=== PATIENT | female | born 1995 ===

== ENCOUNTER 2019-12-09 10:02 | Inpatient (IN) | payer MEDICAID, OTHER ==
[2019-12-09] MEDS ORDERED: Tranexamic Acid 1,000 MG in Sodium Chloride 0.9% 100 ML IV PRN (11:50)
[2019-12-09] MEDS ORDERED: Misoprostol 200 MCG Tab PO PRN (11:50)
[2019-12-09] MEDS ORDERED: Water For Irrigation,Sterile 1,000 ML Container IRR PRN (11:50)
[2019-12-09] MEDS ORDERED: Carboprost Tromethamine 250 MCG/1 ML Amp IM PRN (11:50)
[2019-12-09] MEDS ORDERED: Terbutaline 1 MG/ML SDV SUBCUT PRN (11:50)
[2019-12-09] MEDS ORDERED: Sodium Chloride 0.9% 2.5 ML Syringe FLUSH PRN (11:50)
[2019-12-09] MEDS ORDERED: Methylergonovine 0.2 MG/1 ML Amp IM PRN (11:50)
[2019-12-09] MEDS ORDERED: Sodium Chloride 0.9% 10 ML Syringe FLUSH PRN (11:50)
[2019-12-09] MEDS ORDERED: Lidocaine 1% 50 ML MDV INJECT PRN (11:50)
[2019-12-09] MEDS ORDERED: Sodium Chloride 0.9% 10 ML SDV IV PRN (11:50)
[2019-12-09] MEDS ORDERED: Ondansetron 4 MG/2 ML SDV IVPUSH PRN (11:50)
[2019-12-09] MEDS ORDERED: Oxytocin/0.9 % Sodium Chloride 30 UNIT/500 ML BAG IV SCH ×2 (12:00→22:30)
--- NOTE | 2019-12-09 12:11 | US ---
Biophysical profile: Multiple real-time images were obtained. presentation: Cephalic Heart rate: 142 BPM Amniotic fluid: CHELSEA 8.11 cm Biophysical profile: breathing 2, movement 2, tone 2, amniotic fluid volume 2 Impression: 1. Single intrauterine fetus currently cephalic in presentation. 2. 8 out of 8 on biophysical profile. Diagnostic code #1 This report was dictated in MDT
[2019-12-09] MEDS: Clindamycin Phosphate in D5W 900 MG in Premix Bag 1 BAG IV SCH ×4 (13:19→21:31)
[2019-12-09 13:20] LABS: BLOOD UREA NITROGEN,BUN 14 mg/dL (7.0-18.0); CHLORIDE,CL 103 mmol/L (98-107); GLUCOSE RANDOM 89 mg/dL (74-106); POTASSIUM,K 4.6 mmol/L (3.5-5.1); SODIUM,NA 136 mmol/L (136-145)
[2019-12-09] MEDS: Lactated Ringers 1,000 ML IV SCH ×2 (13:20→20:57)
[2019-12-09] MEDS: Misoprostol 25 MCG (1/4 of 100 MCG) Tab VAG PRN ×2 (13:22→18:31)
--- NOTE | 2019-12-09 15:37 | PCM.PREANE ---
Preanesthetic Assessment - Procedure Proposed Procedure: GRETCHEN - Anesthesia/Transfusion/Family Hx Anesthesia History: Prior Anesthesia Without Reaction Type of Anesthesia Reaction: Unknown (Reports Lidocaine very short acting.) Family History of Anesthesia Reaction: No Transfusion History: No Prior Transfusion(s) Intubation History: Unknown - Review of Systems General: No Symptoms Pulmonary: No Symptoms Cardiovascular: No Symptoms Gastrointestinal: No Symptoms Neurological: No Symptoms Other: Reports: Anxiety (Spinal Lordosis) - Physical Assessment Height: 1.55 m Weight: 109.316 kg ASA Class: 2 Mental Status: Alert & Oriented x3 Airway Class: Mallampati = 2 Dentition: Reports: Normal Dentition Thyro-Mental Finger Breadths: 3 Mouth Opening Finger Breadths: 3 ROM/Head Extension: Full Lungs: Clear to Auscultation Cardiovascular: Regular Rate - Lab Values: Laboratory Last Values WBC 11.85 K/uL (4.0-11.0) H 12/09/19 12:35 RBC 4.82 M/uL (4.30-5.90) 12/09/19 12:35 Hgb 14.3 g/dL (12.0-16.0) 12/09/19 12:35 Hct 41.8 % (36.0-46.0) 12/09/19 12:35 MCV 86.7 fL (80.0-98.0) 12/09/19 12:35 MCH 29.7 pg (27.0-32.0) 12/09/19 12:35 MCHC 34.2 g/dL (31.0-37.0) 12/09/19 12:35 RDW Std Deviation 42.5 fl (28.0-62.0) 12/09/19 12:35 RDW Coeff of José 14 % (11.0-15.0) 12/09/19 12:35 Plt Count 169 K/uL (150-400) 12/09/19 12:35 MPV 14.10 fL (7.40-12.00) H 12/09/19 12:35 Nucleated RBC % 0.0 /100WBC 12/09/19 12:35 Nucleated RBCs # 0 K/uL 12/09/19 12:35 Sodium 136 mmol/L (136-145) 12/09/19 12:35 Potassium 4.6 mmol/L (3.5-5.1) 12/09/19 12:35 Chloride 103 mmol/L (98-107) 12/09/19 12:35 Carbon Dioxide 19.0 mmol/L (21.0-32.0) L 12/09/19 12:35 BUN 14 mg/dL (7.0-18.0) 12/09/19 12:35 Creatinine 0.7 mg/dL (0.6-1.0) 12/09/19 12:35 Est Cr Clr Drug Dosing 94.32 mL/min 12/09/19 12:35 Estimated GFR (MDRD) > 60.0 ml/min 12/09/19 12:35 Glucose 89 mg/dL (74-106) 12/09/19 12:35 Calcium 9.5 mg/dL (8.5-10.1) 12/09/19 12:35 Total Bilirubin 0.5 mg/dL (0.2-1.0) 12/09/19 12:35 AST 17 IU/L (15-37) 12/09/19 12:35 ALT 24 IU/L (14-63) 12/09/19 12:35 Alkaline Phosphatase 272 U/L (46-116) H 12/09/19 12:35 Total Protein 7.0 g/dL (6.4-8.2) 12/09/19 12:35 Albumin 2.9 g/dL (3.4-5.0) L 12/09/19 12:35 Globulin 4.1 g/dL (2.6-4.0) H 12/09/19 12:35 Albumin/Globulin Ratio 0.7 (0.9-1.6) L 12/09/19 12:35 Urine Color YELLOW 12/09/19 10:54 Urine Appearance HAZY 12/09/19 10:54 Urine pH 6.0 (5.0-8.0) 12/09/19 10:54 Ur Specific [place] 1.025 (1.001-1.035) 12/09/19 10:54 Urine Protein NEGATIVE mg/dL (NEGATIVE) 12/09/19 10:54 Urine Glucose (UA) NEGATIVE mg/dL (NEGATIVE) 12/09/19 10:54 Urine Ketones NEGATIVE mg/dL (NEGATIVE) 12/09/19 10:54 Urine Occult Blood NEGATIVE (NEGATIVE) 12/09/19 10:54 Urine Nitrite POSITIVE (NEGATIVE) H 12/09/19 10:54 Urine Bilirubin NEGATIVE (NEGATIVE) 12/09/19 10:54 Urine Urobilinogen 0.2 EU/dL (<2.0) 12/09/19 10:54 Ur Leukocyte Esterase NEGATIVE (NEGATIVE) 12/09/19 10:54 Ur Random Creatinine 306.7 mg/dL 12/09/19 10:54 U Random Total Protein 41.3 mg/dL (<11.9) H 12/09/19 10:54 Protein/Creatinin Ratio 0.1 12/09/19 10:54 COVID-19 (GERALD) NEGATIVE (NEGATIVE) 12/09/19 12:44 Blood Type O POSITIVE 12/09/19 12:35 Antibody Screen NEGATIVE 12/09/19 12:35 - Allergies Allergies/Adverse Reactions: Allergies Allergy/AdvReac Type Severity Reaction Status Date / Time amoxicillin Allergy Hives Verified 11/16/19 16:47 aspirin Allergy Difficulty Verified 11/16/19 17:57 Breathing hydrocodone Allergy Hallucinati Verified 11/16/19 16:49 ons Penicillins Allergy Hives Verified 11/16/19 16:48 - Blood Blood Available: No Product(s) Available: None - Anesthesia Plan Pre-Op Medication Ordered: None - Acknowledgements Anesthesia Type Planned: Epidural Pt an Appropriate Candidate for the Planned Anesthesia: Yes Alternatives and Risks of Anesthesia Discussed w Pt/Guardian: Yes Pt/Guardian Understands and Agrees with Anesthesia Plan: Yes Additional Comments: Appropriate candidate. Discussed, ? answered, aware of issues with lordosis. Accepts. Wishes to proceed when time appropriate. PreAnesthesia Questionnaire - CURRENT (IN HOUSE) MEDS Current Meds: Current Medications Carboprost Tromethamine (Hemabate Ds) 250 mcg IM ASDIRECTED PRN PRN Reason: Post Hemorrhage Lactated Ringer's (Ringers, Lactated) 1,000 mls @ 150 mls/hr IV ASDIRECTED [facility] Last Admin: 12/09/19 13:20 Dose: 150 mls/hr Documented by: Oxytocin/Sodium Chloride (Oxytocin 30 Unit/500 Ml-Ns) 30 unit in 500 mls @ 999 mls/hr IV TITRATE [facility] Tranexamic Acid 1,000 mg/ (Sodium Chloride) 110 mls @ 660 mls/hr IV ONETIME PRN PRN Reason: Bleeding Clindamycin Phosphate 900 mg/ (Premix) 50 mls @ 100 mls/hr IV Q8H ES Last Admin: 12/09/19 13:19 Dose: 100 mls/hr Documented by: Lidocaine HCl (Xylocaine 1%) 50 ml INJECT ONETIME PRN PRN Reason: Laceration repair Methylergonovine Maleate (Methergine) 0.2 mg IM ASDIRECTED PRN PRN Reason: Post Hemorrhage Misoprostol (Cytotec) 200 mcg PO ONETIME PRN PRN Reason: Post Hemorrhage Misoprostol (Cytotec) 25 mcg VAG Q4H PRN PRN Reason: Cervical Ripening Last Admin: 12/09/19 13:22 Dose: 25 mcg Documented by: Ondansetron HCl (Zofran) 4 mg IVPUSH Q6H PRN PRN Reason: Nausea/Vomiting Sodium Chloride (Saline Flush) 10 ml FLUSH ASDIRECTED PRN PRN Reason: Keep Vein Open Sodium Chloride (Saline Flush) 2.5 ml FLUSH ASDIRECTED PRN PRN Reason: Keep Vein Open Sodium Chloride (Normal Saline) 10 ml IV ASDIRECTED PRN PRN Reason: IV Use Sterile Water (Sterile Water For Irrigation) 1,000 ml IRR ASDIRECTED PRN PRN Reason: delivery Terbutaline Sulfate (Brethine) 0.25 mg SUBCUT ASDIRECTED PRN PRN Reason: Tacysystole
[2019-12-09] MEDS ORDERED: Nalbuphine 10 MG/1 ML Vial IVPUSH PRN (18:13)
[2019-12-09] MEDS ORDERED: Butorphanol 1 MG/ML SDV IVPUSH PRN (18:13)
[2019-12-09] MEDS ORDERED: fentaNYL 100 MCG/2 ML SDV ONE (20:12)
[2019-12-09] MEDS ORDERED: Ropivacaine 0.2% PF 2 MG/ML 20 ML SDV ONE (20:13)
[2019-12-09] MEDS ORDERED: Ropivacaine HCl/PF 100 ML ONE (20:13)
[2019-12-09] MEDS ORDERED: Sodium Chloride 0.9% 20 ML ONE (20:48)
[2019-12-09] MEDS ORDERED: ePHEDrine 50 MG/ML SDV ONE (20:48)
[2019-12-09] MEDS: Nitrofurantoin Monohydrate/Macrocrystalline 100 MG Cap PO SCH (21:05)
--- NOTE | 2019-12-09 21:23 | PCM.SN.2 ---
- Free Text/Narrative Note: GRETCHEN on . BMI 44.5. Hx Lordosis. Discussed, ? answered, permit signed, wishes to proceed. Bolus in-progress. Hx of Lidocaine tolerance. Pain 8/10. Prep: Chloroprep. Skin local: 5ml 1% Lidocaine @ L3-4(?). Space on second pass. Catheter without issues to 6 cm. TEST NEGATIVE. Occlusive drsg. Bolus slowly, 8ml 0.2% Naropin + 100 mcg Fentanyl. BP drop post, Ephidrine 10mg x1. Immediate response 124/ Tolerated procedure well. Pain 0/10 post. VSS.
[2019-12-10] MEDS: Nitrofurantoin Monohydrate/Macrocrystalline 100 MG Cap PO SCH ×2 (03:35→09:13)
[2019-12-10] MEDS: Lactated Ringers 1,000 ML IV SCH (03:36)
[2019-12-10] MEDS: Clindamycin Phosphate in D5W 900 MG in Premix Bag 1 BAG IV SCH ×4 (04:02→12:10)
[2019-12-10] MEDS ORDERED: fentaNYL 100 MCG/2 ML SDV ONE ×2 (06:37→08:37)
[2019-12-10] MEDS ORDERED: Ropivacaine 0.2% PF 2 MG/ML 20 ML SDV ONE (06:37)
[2019-12-10] MEDS ORDERED: Ropivacaine HCl/PF 100 ML ONE (06:43)
--- NOTE | 2019-12-10 06:57 | PCM.SN.2 ---
- Free Text/Narrative Note: Progressing well. Complaining of increased cervical/perineum pain. Naropin 0.2% 4ml + 100 mcg fentanyl given. Pain lessening. New epidural bag placed. Setting changed to bolus q15.
[2019-12-10] MEDS ORDERED: Bupivacaine 0.5% 30 ML SDV ONE (08:37)
--- NOTE | 2019-12-10 08:55 | PCM.SN.2 ---
- Free Text/Narrative Note: Complains of increasing discomfort ?02/27. VSS Progressing well, 9+ cm dilated. Marcaine 0.5% 4ml + 100 mcg Fentanyl given slowly via epidural. Negative aspiration . Pain lessening. No problems noted.
--- NOTE | 2019-12-10 12:57 | PCM.DEL ---
L & D Note - General Info Date of Service: 12/10/19 - Delivery Note Labor: Spontaneous, Augmented by Oxytocin Delivery Outcome: Livebirth Delivery Method: Spontaneous Vaginal Delivery-Single Delivery Mode: Spontaneous Presentation: Right Occiput Anterior (ALBAN) Nuchal Cord: Present, Reduced Anesthesia Type: Epidural Amniotic Fluid Description: Clear Laceration: None Placenta: Intact, Spontaneous Cord: 3 Vessels Estimated Blood Loss: 200 : Suctioned, Bulb Syringe, Stimulated, Warmed, [place] Used, Warmer Used Score 1 min: 7 Score 5 min: 9 Delivery Comments (Free Text/Narrative):: Liveborn male born at 1234 weighing 3300g apgars 7 and 9 - General Info Date of Service: 12/10/19 - Patient Data Weight - Most Recent: 241 lb I&O - Last 24 Hours: Intake & Output 12/09/19 12/10/19 12/10/19 22:59 06:59 14:59 Intake Total 1050 1050 Output Total 1300 Balance 1050 -250 Lab Results Last 24 Hours: Laboratory Results - last 24 hr 12/09/19 12/09/19 12/09/19 Range/Units 12:35 12:35 12:35 WBC 11.85 H (4.0-11.0) K/uL RBC 4.82 (4.30-5.90) M/uL Hgb 14.3 (12.0-16.0) g/dL Hct 41.8 (36.0-46.0) % MCV 86.7 (80.0-98.0) fL MCH 29.7 (27.0-32.0) pg MCHC 34.2 (31.0-37.0) g/dL RDW Std Deviation 42.5 (28.0-62.0) fl RDW Coeff of José 14 (11.0-15.0) % Plt Count 169 (150-400) K/uL MPV 14.10 H (7.40-12.00) fL Nucleated RBC % 0.0 /100WBC Nucleated RBCs # 0 K/uL Sodium (136-145) mmol/L Potassium (3.5-5.1) mmol/L Chloride (98-107) mmol/L Carbon Dioxide (21.0-32.0) mmol/L BUN (7.0-18.0) mg/dL Creatinine (0.6-1.0) mg/dL Est Cr Clr Drug Dosing mL/min Estimated GFR (MDRD) ml/min Glucose (74-106) mg/dL Calcium (8.5-10.1) mg/dL Total Bilirubin (0.2-1.0) mg/dL AST (15-37) IU/L ALT (14-63) IU/L Alkaline Phosphatase (46-116) U/L Total Protein (6.4-8.2) g/dL Albumin (3.4-5.0) g/dL Globulin (2.6-4.0) g/dL Albumin/Globulin Ratio (0.9-1.6) Urine Color Urine Appearance Urine pH (5.0-8.0) Ur Specific [place] (1.001-1.035) Urine Protein (NEGATIVE) mg/dL Urine Glucose (UA) (NEGATIVE) mg/dL Urine Ketones (NEGATIVE) mg/dL Urine Occult Blood (NEGATIVE) Urine Nitrite (NEGATIVE) Urine Bilirubin (NEGATIVE) Urine Urobilinogen (<2.0) EU/dL Ur Leukocyte Esterase (NEGATIVE) Urine RBC (0-2/HPF) Urine WBC (0-5/HPF) Ur Epithelial Cells (NONE-FEW) Urine Bacteria (NEGATIVE) Urine Mucus (NONE-MOD) RPR Non-Reac (Non-Reac) COVID-19 (GERALD) (NEGATIVE) Blood Type O POSITIVE Antibody Screen NEGATIVE 12/09/19 12/09/19 12/10/19 Range/Units 12:35 12:44 06:56 WBC (4.0-11.0) K/uL RBC (4.30-5.90) M/uL Hgb (12.0-16.0) g/dL Hct (36.0-46.0) % MCV (80.0-98.0) fL MCH (27.0-32.0) pg MCHC (31.0-37.0) g/dL RDW Std Deviation (28.0-62.0) fl RDW Coeff of José (11.0-15.0) % Plt Count (150-400) K/uL MPV (7.40-12.00) fL Nucleated RBC % /100WBC Nucleated RBCs # K/uL Sodium 136 (136-145) mmol/L Potassium 4.6 (3.5-5.1) mmol/L Chloride 103 (98-107) mmol/L Carbon Dioxide 19.0 L (21.0-32.0) mmol/L BUN 14 (7.0-18.0) mg/dL Creatinine 0.7 (0.6-1.0) mg/dL Est Cr Clr Drug Dosing 94.32 mL/min Estimated GFR (MDRD) > 60.0 ml/min Glucose 89 (74-106) mg/dL Calcium 9.5 (8.5-10.1) mg/dL Total Bilirubin 0.5 (0.2-1.0) mg/dL AST 17 (15-37) IU/L ALT 24 (14-63) IU/L Alkaline Phosphatase 272 H (46-116) U/L Total Protein 7.0 (6.4-8.2) g/dL Albumin 2.9 L (3.4-5.0) g/dL Globulin 4.1 H (2.6-4.0) g/dL Albumin/Globulin Ratio 0.7 L (0.9-1.6) Urine Color YELLOW Urine Appearance SLT CLOUDY Urine pH 6.0 (5.0-8.0) Ur Specific [place] >= 1.030 (1.001-1.035) Urine Protein TRACE H (NEGATIVE) mg/dL Urine Glucose (UA) NEGATIVE (NEGATIVE) mg/dL Urine Ketones NEGATIVE (NEGATIVE) mg/dL Urine Occult Blood MODERATE H (NEGATIVE) Urine Nitrite NEGATIVE (NEGATIVE) Urine Bilirubin NEGATIVE (NEGATIVE) Urine Urobilinogen 0.2 (<2.0) EU/dL Ur Leukocyte Esterase TRACE H (NEGATIVE) Urine RBC 8-12 (0-2/HPF) Urine WBC 5-10 (0-5/HPF) Ur Epithelial Cells FEW (NONE-FEW) Urine Bacteria FEW (NEGATIVE) Urine Mucus LIGHT (NONE-MOD) RPR (Non-Reac) COVID-19 (GERALD) NEGATIVE (NEGATIVE) Blood Type Antibody Screen Med Orders - Current: Current Medications Butorphanol Tartrate (Stadol) 1 mg IVPUSH Q1H PRN PRN Reason: Pain Last Admin: 12/09/19 18:21 Dose: 1 mg Documented by: Carboprost Tromethamine (Hemabate Ds) 250 mcg IM ASDIRECTED PRN PRN Reason: Post Hemorrhage Lactated Ringer's (Ringers, Lactated) 1,000 mls @ 150 mls/hr IV ASDIRECTED [facility] Last Infusion: 12/10/19 06:47 Dose: Infused Documented by: Oxytocin/Sodium Chloride (Oxytocin 30 Unit/500 Ml-Ns) 30 unit in 500 mls @ 999 mls/hr IV TITRATE [facility] Tranexamic Acid 1,000 mg/ (Sodium Chloride) 110 mls @ 660 mls/hr IV ONETIME PRN PRN Reason: Bleeding Clindamycin Phosphate 900 mg/ (Premix) 50 mls @ 100 mls/hr IV Q8H [facility] Last Admin: 12/10/19 12:10 Dose: 100 mls/hr Documented by: Oxytocin/Sodium Chloride (Oxytocin 30 Unit/500 Ml-Ns) 30 unit in 500 mls @ 2 mls/hr IV TITRATE [facility]; Protocol Last Infusion: 12/10/19 12:05 Dose: 6 munits/min, 6 mls/hr Documented by: Lidocaine HCl (Xylocaine 1%) 50 ml INJECT ONETIME PRN PRN Reason: Laceration repair Methylergonovine Maleate (Methergine) 0.2 mg IM ASDIRECTED PRN PRN Reason: Post Hemorrhage Misoprostol (Cytotec) 200 mcg PO ONETIME PRN PRN Reason: Post Hemorrhage Misoprostol (Cytotec) 25 mcg VAG Q4H PRN PRN Reason: Cervical Ripening Last Admin: 12/09/19 18:31 Dose: 25 mcg Documented by: Nalbuphine HCl (Nubain) 10 mg IVPUSH Q1H PRN PRN Reason: Pain (severe 7-10) Last Admin: 12/09/19 19:35 Dose: 10 mg Documented by: Nitrofurantoin Macrocrystals (Macrobid) 100 mg PO BID [facility] Last Admin: 12/10/19 09:13 Dose: Not Given Documented by: Ondansetron HCl (Zofran) 4 mg IVPUSH Q6H PRN PRN Reason: Nausea/Vomiting Last Admin: 12/10/19 04:09 Dose: 4 mg Documented by: Sodium Chloride (Saline Flush) 10 ml FLUSH ASDIRECTED PRN PRN Reason: Keep Vein Open Sodium Chloride (Saline Flush) 2.5 ml FLUSH ASDIRECTED PRN PRN Reason: Keep Vein Open Sodium Chloride (Normal Saline) 10 ml IV ASDIRECTED PRN PRN Reason: IV Use Sterile Water (Sterile Water For Irrigation) 1,000 ml IRR ASDIRECTED PRN PRN Reason: delivery Terbutaline Sulfate (Brethine) 0.25 mg SUBCUT ASDIRECTED PRN PRN Reason: Tacysystole Last Admin: 12/09/19 23:37 Dose: 0.25 mg Documented by: Discontinued Medications Bupivacaine HCl (Marcaine 0.5%) Confirm Administered Dose 30 ml .ROUTE .STK-MED ONE Stop: 12/10/19 08:38 Last Admin: 12/10/19 09:12 Dose: Not Given Documented by: Ephedrine Sulfate (Ephedrine Sulfate) Confirm Administered Dose 100 mg .ROUTE .ST-MED ONE Stop: 12/09/19 20:49 Fentanyl (Sublimaze) Confirm Administered Dose 100 mcg .ROUTE .ST-MED ONE Stop: 12/09/19 20:13 Last Admin: 12/10/19 09:12 Dose: Not Given Documented by: Fentanyl (Sublimaze) Confirm Administered Dose 100 mcg .ROUTE .Front [employer]k [facility]-MED ONE Stop: 12/10/19 06:38 Last Admin: 12/10/19 09:11 Dose: Not Given Documented by: Fentanyl (Sublimaze) Confirm Administered Dose 100 mcg .ROUTE .Front Desk [facility]-MED ONE Stop: 12/10/19 08:38 Last Admin: 12/10/19 09:09 Dose: Not Given Documented by: Ropivacaine (Naropin 0.2%) Confirm Administered Dose 100 mls @ as directed .ROUTE .[facility]-MED ONE Stop: 12/09/19 20:14 Last Admin: 12/10/19 09:11 Dose: Not Given Documented by: Sodium Chloride (Normal Saline) Confirm Administered Dose 20 mls @ as directed .ROUTE .ST-MED ONE Stop: 12/09/19 20:49 Ropivacaine (Naropin 0.2%) Confirm Administered Dose 100 mls @ as directed .ROUTE .[facility]-MED ONE Stop: 12/10/19 06:44 Last Admin: 12/10/19 09:10 Dose: Not Given Documented by: Ropivacaine (Naropin 0.2%) Confirm Administered Dose 20 ml .ROUTE .[facility]-MED ONE Stop: 12/09/19 20:14 Last Admin: 12/10/19 09:11 Dose: Not Given Documented by: Ropivacaine (Naropin 0.2%) Confirm Administered Dose 20 ml .ROUTE .STK-MED ONE Stop: 12/10/19 06:38 Last Admin: 12/10/19 09:11 Dose: Not Given Documented by: - Problem List & Annotations (1) Vaginal delivery SNOMED Code(s): 336233317 Code(s): O80 - ENCOUNTER FOR FULL-TERM UNCOMPLICATED DELIVERY Status: Acute Current Visit: Yes - Problem List Review Problem List Initiated/Reviewed/Updated: Yes - Assessment Assessment:: 24yo s/p . GBS positive sufficiently treated during labor. - Plan Plan:: Admit to for routine care Monitor lochia Encourage
[2019-12-10] MEDS ORDERED: Benzocaine/Menthol 20%-0.5% Spray 78 GM Cannister TOP PRN (12:59)
[2019-12-10] MEDS ORDERED: Witch Hazel Medicated Pads 40/Jar TOP PRN (12:59)
[2019-12-10] MEDS ORDERED: Docusate Sodium 100 MG Cap PO PRN (12:59)
[2019-12-10] MEDS ORDERED: Lanolin 100% Cream 7 GM Tube TOP PRN (12:59)
[2019-12-10] MEDS ORDERED: Acetaminophen 500 MG Tab PO PRN (12:59)
[2019-12-10] MEDS ORDERED: Bisacodyl 10 MG Supp RECTAL PRN (12:59)
[2019-12-10] MEDS: Acetaminophen 500 MG Tab PO PRN ×2 (15:43→20:24)
--- NOTE | 2019-12-11 07:03 | PCM.PNPP ---
<Juan Wood - Last Filed: 12/11/19 07:00> - General Info Date of Service: 12/11/19 Subjective Update: Pt doing well. No problems overnight. Having cramping pain well-controlled with tylenol. Bleeding is moderate. Has ambulated well and is tolerating oral intake. has been unsuccessful so far, so is supplementing with formula for now. - Review of Systems General: Reports: No Symptoms HEENT: Reports: No Symptoms Pulmonary: Reports: No Symptoms Cardiovascular: Reports: No Symptoms Gastrointestinal: Reports: No Symptoms Genitourinary: Reports: No Symptoms Musculoskeletal: Reports: Back Pain Skin: Reports: No Symptoms Neurological: Reports: No Symptoms Psychiatric: Reports: No Symptoms - General Info Date of Service: 12/11/19 - Patient Data Vital Signs - Most Recent: Last Vital Signs Temp 97.8 F 12/11/19 05:00 Pulse 84 12/11/19 05:00 Resp 17 12/11/19 05:00 BP 133/79 12/11/19 05:00 Pulse Ox 97 12/11/19 05:00 Weight - Most Recent: 109.316 kg Lab Results - Last 24 Hours: Laboratory Results - last 24 hr 12/09/19 12/10/19 12/10/19 Range/Units 12:35 06:56 12:34 Hgb (12.0-16.0) g/dL Hct (36.0-46.0) % Cord ABG pH 7.172 L (7.18-7.38) Cord ABG Base Excess -8 (-10--2) Cord VBG pH 7.284 (7.25-7.45) Cord VBG Base Excess -8 (-10--2) Urine Color YELLOW Urine Appearance SLT CLOUDY Urine pH 6.0 (5.0-8.0) Ur Specific [place] >= 1.030 (1.001-1.035) Urine Protein TRACE H (NEGATIVE) mg/dL Urine Glucose (UA) NEGATIVE (NEGATIVE) mg/dL Urine Ketones NEGATIVE (NEGATIVE) mg/dL Urine Occult Blood MODERATE H (NEGATIVE) Urine Nitrite NEGATIVE (NEGATIVE) Urine Bilirubin NEGATIVE (NEGATIVE) Urine Urobilinogen 0.2 (<2.0) EU/dL Ur Leukocyte Esterase TRACE H (NEGATIVE) Urine RBC 8-12 (0-2/HPF) Urine WBC 5-10 (0-5/HPF) Ur Epithelial Cells FEW (NONE-FEW) Urine Bacteria FEW (NEGATIVE) Urine Mucus LIGHT (NONE-MOD) RPR Non-Reac (Non-Reac) 12/11/19 Range/Units 05:45 Hgb 11.7 L (12.0-16.0) g/dL Hct 35.8 L (36.0-46.0) % Cord ABG pH (7.18-7.38) Cord ABG Base Excess (-10--2) Cord VBG pH (7.25-7.45) Cord VBG Base Excess (-10--2) Urine Color Urine Appearance Urine pH (5.0-8.0) Ur Specific [place] (1.001-1.035) Urine Protein (NEGATIVE) mg/dL Urine Glucose (UA) (NEGATIVE) mg/dL Urine Ketones (NEGATIVE) mg/dL Urine Occult Blood (NEGATIVE) Urine Nitrite (NEGATIVE) Urine Bilirubin (NEGATIVE) Urine Urobilinogen (<2.0) EU/dL Ur Leukocyte Esterase (NEGATIVE) Urine RBC (0-2/HPF) Urine WBC (0-5/HPF) Ur Epithelial Cells (NONE-FEW) Urine Bacteria (NEGATIVE) Urine Mucus (NONE-MOD) RPR (Non-Reac) Med Orders - Current: Current Medications Acetaminophen (Tylenol Extra Strength) 500 mg PO Q4H PRN PRN Reason: Pain Acetaminophen (Tylenol Extra Strength) 1,000 mg PO Q4H PRN PRN Reason: Pain Last Admin: 12/10/19 20:24 Dose: 1,000 mg Documented by: Benzocaine/Menthol (Dermoplast Pain Relief 20%-0.5% [place]) 78 gm TOP ASDIRECTED PRN PRN Reason: Perineal Comfort Measure Bisacodyl (Dulcolax) 10 mg RECTAL ONETIME PRN PRN Reason: Constipation Docusate Sodium (Colace) 100 mg PO BID PRN PRN Reason: Constipation Emollient Ointment (Lansinoh Hpa) 0 gm TOP ASDIRECTED PRN PRN Reason: Sore Nipples Witch Della (Tucks) 1 pad TOP ASDIRECTED PRN PRN Reason: comfort care Discontinued Medications Bupivacaine HCl (Marcaine 0.5%) Confirm Administered Dose 30 ml .ROUTE .STK-MED ONE Stop: 12/10/19 08:38 Last Admin: 12/10/19 09:12 Dose: Not Given Documented by: Butorphanol Tartrate (Stadol) 1 mg IVPUSH Q1H PRN PRN Reason: Pain Last Admin: 12/09/19 18:21 Dose: 1 mg Documented by: Carboprost Tromethamine (Hemabate Ds) 250 mcg IM ASDIRECTED PRN PRN Reason: Post Hemorrhage Ephedrine Sulfate (Ephedrine Sulfate) Confirm Administered Dose 100 mg .ROUTE .STK-MED ONE Stop: 12/09/19 20:49 Fentanyl (Sublimaze) Confirm Administered Dose 100 mcg .ROUTE .STK-MED ONE Stop: 12/09/19 20:13 Last Admin: 12/10/19 09:12 Dose: Not Given Documented by: Fentanyl (Sublimaze) Confirm Administered Dose 100 mcg .ROUTE .STK-MED ONE Stop: 12/10/19 06:38 Last Admin: 12/10/19 09:11 Dose: Not Given Documented by: Fentanyl (Sublimaze) Confirm Administered Dose 100 mcg .ROUTE .STK-MED ONE Stop: 12/10/19 08:38 Last Admin: 12/10/19 09:09 Dose: Not Given Documented by: Lactated Ringer's (Ringers, Lactated) 1,000 mls @ 150 mls/hr IV ASDIRECTED [facility] Last Infusion: 12/10/19 06:47 Dose: Infused Documented by: Oxytocin/Sodium Chloride (Oxytocin 30 Unit/500 Ml-Ns) 30 unit in 500 mls @ 999 mls/hr IV TITRATE [facility] Last Infusion: 12/10/19 12:52 Dose: 500 mls/hr Documented by: Tranexamic Acid 1,000 mg/ (Sodium Chloride) 110 mls @ 660 mls/hr IV ONETIME PRN PRN Reason: Bleeding Clindamycin Phosphate 900 mg/ (Premix) 50 mls @ 100 mls/hr IV Q8H [facility] Last Admin: 12/10/19 12:10 Dose: 100 mls/hr Documented by: Ropivacaine (Naropin 0.2%) Confirm Administered Dose 100 mls @ as directed .ROUTE .STK-MED ONE Stop: 12/09/19 20:14 Last Admin: 12/10/19 09:11 Dose: Not Given Documented by: Sodium Chloride (Normal Saline) Confirm Administered Dose 20 mls @ as directed .ROUTE .STK-MED ONE Stop: 12/09/19 20:49 Oxytocin/Sodium Chloride (Oxytocin 30 Unit/500 Ml-Ns) 30 unit in 500 mls @ 2 mls/hr IV TITRATE ES; Protocol Last Infusion: 12/10/19 12:38 Dose: 0 munits/min, 0 mls/hr Documented by: Ropivacaine (Naropin 0.2%) Confirm Administered Dose 100 mls @ as directed .ROUT E .STK-MED ONE Stop: 12/10/19 06:44 Last Admin: 12/10/19 09:10 Dose: Not Given Documented by: Lidocaine HCl (Xylocaine 1%) 50 ml INJECT ONETIME PRN PRN Reason: Laceration repair Methylergonovine Maleate (Methergine) 0.2 mg IM ASDIRECTED PRN PRN Reason: Post Hemorrhage Misoprostol (Cytotec) 200 mcg PO ONETIME PRN PRN Reason: Post Hemorrhage Misoprostol (Cytotec) 25 mcg VAG Q4H PRN PRN Reason: Cervical Ripening Last Admin: 12/09/19 18:31 Dose: 25 mcg Documented by: Nalbuphine HCl (Nubain) 10 mg IVPUSH Q1H PRN PRN Reason: Pain (severe 7-10) Last Admin: 12/09/19 19:35 Dose: 10 mg Documented by: Nitrofurantoin Macrocrystals (Macrobid) 100 mg PO BID [facility] Last Admin: 12/10/19 09:13 Dose: Not Given Documented by: Ondansetron HCl (Zofran) 4 mg IVPUSH Q6H PRN PRN Reason: Nausea/Vomiting Last Admin: 12/10/19 04:09 Dose: 4 mg Documented by: Ropivacaine (Naropin 0.2%) Confirm Administered Dose 20 ml .ROUTE .STK-MED ONE Stop: 12/09/19 20:14 Last Admin: 12/10/19 09:11 Dose: Not Given Documented by: Ropivacaine (Naropin 0.2%) Confirm Administered Dose 20 ml .ROUTE .STK-MED ONE Stop: 12/10/19 06:38 Last Admin: 12/10/19 09:11 Dose: Not Given Documented by: Sodium Chloride (Saline Flush) 10 ml FLUSH ASDIRECTED PRN PRN Reason: Keep Vein Open Sodium Chloride (Saline Flush) 2.5 ml FLUSH ASDIRECTED PRN PRN Reason: Keep Vein Open Sodium Chloride (Normal Saline) 10 ml IV ASDIRECTED PRN PRN Reason: IV Use Sterile Water (Sterile Water For Irrigation) 1,000 ml IRR ASDIRECTED PRN PRN Reason: delivery Last Admin: 12/10/19 12:04 Dose: 1,000 ml Documented by: Terbutaline Sulfate (Brethine) 0.25 mg SUBCUT ASDIRECTED PRN PRN Reason: Tacysystole Last Admin: 12/09/19 23:37 Dose: 0.25 mg Documented by: - Infant Interaction Support Person: Significant Other - Recovery Exam Fundal Tone: Firm Fundal Level: At Umbilicus Fundal Placement: Midline Lochia Amount: Scant, Small Lochia Color: Rubra/Red Perineum Description: Intact, Minimal Bruising/Swelling Bladder Status: Voiding - Exam General: Alert, Oriented, No Acute Distress HEENT: Pupils Equal, EOMI Neck: Supple, No JVD Lungs: Clear to Auscultation, Normal Respiratory Effort. No: Crackles, Rales, Rhonchi, Rub, Wheezing Cardiovascular: Regular Rate, Regular Rhythm, No Murmurs GI/Abdominal Exam: Normal Bowel Sounds, Soft, Tender. No: Guarding, Rigid Extremities: Normal Inspection, Normal Range of Motion, Non-Tender Skin: Warm, Dry, Intact Neurological: No New Focal Deficit, Normal Speech, Normal Tone Psy/Mental Status: Alert, Normal Affect, Normal Mood - Problem List & Annotations (1) Vaginal delivery SNOMED Code(s): 310990883 Code(s): O80 - ENCOUNTER FOR FULL-TERM UNCOMPLICATED DELIVERY Status: Acute Current Visit: Yes - Problem List Review Problem List Initiated/Reviewed/Updated: Yes - Assessment Assessment:: 24yo s/p . GBS positive sufficiently treated during labor. PPD#1 - Plan Plan:: routine care Monitor lochia Encourage Baby on antibiotics until tomorrow, so will discharge then. <Keily Shrestha - Last Filed: 12/11/19 08:35> - General Info Functional Status: Reports: Pain Controlled, Tolerating Diet, Ambulating, Urinating - Patient Data Vital Signs - Most Recent: Last Vital Signs Temp 36.6 C 07/23/20 05:00 Pulse 84 12/11/19 05:00 Resp 17 12/11/19 05:00 BP 133/79 12/11/19 05:00 Pulse Ox 97 12/11/19 05:00 Lab Results - Last 24 Hours: Laboratory Results - last 24 hr 12/09/19 12/10/19 12/11/19 Range/Units 12:35 12:34 05:45 Hgb 11.7 L (12.0-16.0) g/dL Hct 35.8 L (36.0-46.0) % Cord ABG pH 7.172 L (7.18-7.38) Cord ABG Base Excess -8 (-10--2) Cord VBG pH 7.284 (7.25-7.45) Cord VBG Base Excess -8 (-10--2) RPR Non-Reac (Non-Reac) Micro Results - Last 24 Hours: Microbiology 12/10/19 06:56 Urine Culture - Preliminary Urine, Catheterized NO GROWTH AFTER 1 DAY Med Orders - Current: Current Medications Acetaminophen (Tylenol Extra Strength) 500 mg PO Q4H PRN PRN Reason: Pain Acetaminophen (Tylenol Extra Strength) 1,000 mg PO Q4H PRN PRN Reason: Pain Last Admin: 12/10/19 20:24 Dose: 1,000 mg Documented by: Benzocaine/Menthol (Dermoplast Pain Relief 20%-0.5% [place]) 78 gm TOP ASDIRECTED PRN PRN Reason: Perineal Comfort Measure Bisacodyl (Dulcolax) 10 mg RECTAL ONETIME PRN PRN Reason: Constipation Docusate Sodium (Colace) 100 mg PO BID PRN PRN Reason: Constipation Emollient Ointment (Lansinoh Hpa) 0 gm TOP ASDIRECTED PRN PRN Reason: Sore Nipples Witch Della (Tucks) 1 pad TOP ASDIRECTED PRN PRN Reason: comfort care Discontinued Medications Bupivacaine HCl (Marcaine 0.5%) Confirm Administered Dose 30 ml .ROUTE .STK-MED ONE Stop: 12/10/19 08:38 Last Admin: 12/10/19 09:12 Dose: Not Given Documented by: Butorphanol Tartrate (Stadol) 1 mg IVPUSH Q1H PRN PRN Reason: Pain Last Admin: 12/09/19 18:21 Dose: 1 mg Documented by: Carboprost Tromethamine (Hemabate Ds) 250 mcg IM ASDIRECTED PRN PRN Reason: Post Hemorrhage Ephedrine Sulfate (Ephedrine Sulfate) Confirm Administered Dose 100 mg .ROUTE .STK-MED ONE Stop: 12/09/19 20:49 Fentanyl (Sublimaze) Confirm Administered Dose 100 mcg .ROUTE .STK-MED ONE Stop: 12/09/19 20:13 Last Admin: 12/10/19 09:12 Dose: Not Given Documented by: Fentanyl (Sublimaze) Confirm Administered Dose 100 mcg .ROUTE .STK-MED ONE Stop: 12/10/19 06:38 Last Admin: 12/10/19 09:11 Dose: Not Given Documented by: Fentanyl (Sublimaze) Confirm Administered Dose 100 mcg .ROUTE .STK-MED ONE Stop: 12/10/19 08:38 Last Admin: 12/10/19 09:09 Dose: Not Given Documented by: Lactated Ringer's (Ringers, Lactated) 1,000 mls @ 150 mls/hr IV ASDIRECTED [facility] Last Infusion: 12/10/19 06:47 Dose: Infused Documented by: Oxytocin/Sodium Chloride (Oxytocin 30 Unit/500 Ml-Ns) 30 unit in 500 mls @ 999 mls/hr IV TITRATE [facility] Last Infusion: 12/10/19 12:52 Dose: 500 mls/hr Documented by: Tranexamic Acid 1,000 mg/ (Sodium Chloride) 110 mls @ 660 mls/hr IV ONETIME PRN PRN Reason: Bleeding Clindamycin Phosphate 900 mg/ (Premix) 50 mls @ 100 mls/hr IV Q8H [facility] Last Admin: 12/10/19 12:10 Dose: 100 mls/hr Documented by: Ropivacaine (Naropin 0.2%) Confirm Administered Dose 100 mls @ as directed .ROUTE .STK-MED ONE Stop: 12/09/19 20:14 Last Admin: 12/10/19 09:11 Dose: Not Given Documented by: Sodium Chloride (Normal Saline) Confirm Administered Dose 20 mls @ as directed .ROUTE .STK-MED ONE Stop: 12/09/19 20:49 Oxytocin/Sodium Chloride (Oxytocin 30 Unit/500 Ml-Ns) 30 unit in 500 mls @ 2 mls/hr IV TITRATE ES; Protocol Last Infusion: 12/10/19 12:38 Dose: 0 munits/min, 0 mls/hr Documented by: Ropivacaine (Naropin 0.2%) Confirm Administered Dose 100 mls @ as directed .ROUTE .STK-MED ONE Stop: 12/10/19 06:44 Last Admin: 12/10/19 09:10 Dose: Not Given Documented by: Lidocaine HCl (Xylocaine 1%) 50 ml INJECT ONETIME PRN PRN Reason: Laceration repair Methylergonovine Maleate (Methergine) 0.2 mg IM ASDIRECTED PRN PRN Reason: Post Hemorrhage Misoprostol (Cytotec) 200 mcg PO ONETIME PRN PRN Reason: Post Hemorrhage Misoprostol (Cytotec) 25 mcg VAG Q4H PRN PRN Reason: Cervical Ripening Last Admin: 12/09/19 18:31 Dose: 25 mcg Documented by: Nalbuphine HCl (Nubain) 10 mg IVPUSH Q1H PRN PRN Reason: Pain (severe 7-10) Last Admin: 12/09/19 19:35 Dose: 10 mg Documented by: Nitrofurantoin Macrocrystals (Macrobid) 100 mg PO BID [facility] Last Admin: 12/10/19 09:13 Dose: Not Given Documented by: Ondansetron HCl (Zofran) 4 mg IVPUSH Q6H PRN PRN Reason: Nausea/Vomiting Last Admin: 12/10/19 04:09 Dose: 4 mg Documented by: Ropivacaine (Naropin 0.2%) Confirm Administered Dose 20 ml .ROUTE .STK-MED ONE Stop: 12/09/19 20:14 Last Admin: 12/10/19 09:11 Dose: Not Given Documented by: Ropivacaine (Naropin 0.2%) Confirm Administered Dose 20 ml .ROUTE .STK-MED ONE Stop: 12/10/19 06:38 Last Admin: 12/10/19 09:11 Dose: Not Given Documented by: Sodium Chloride (Saline Flush) 10 ml FLUSH ASDIRECTED PRN PRN Reason: Keep Vein Open Sodium Chloride (Saline Flush) 2.5 ml FLUSH ASDIRECTED PRN PRN Reason: Keep Vein Open Sodium Chloride (Normal Saline) 10 ml IV ASDIRECTED PRN PRN Reason: IV Use Sterile Water (Sterile Water For Irrigation) 1,000 ml IRR ASDIRECTED PRN PRN Reason: delivery Last Admin: 12/10/19 12:04 Dose: 1,000 ml Documented by: Terbutaline Sulfate (Brethine) 0.25 mg SUBCUT ASDIRECTED PRN PRN Reason: Tacysystole Last Admin: 12/09/19 23:37 Dose: 0.25 mg Documented by: - Infant Interaction Infant Disposition, : in Room with Family Infant Interaction: Holding Infant Feeding: Bottle Fed Infant - Problem List & Annotations (1) Vaginal delivery SNOMED Code(s): 013191072 Code(s): O80 - ENCOUNTER FOR FULL-TERM UNCOMPLICATED DELIVERY Status: Acute Current Visit: Yes - Plan Plan:: Agree with the above. Will keep mom in hospital until PPD#2, baby currently on antibiotics for GBS. Monitor lochia.
--- NOTE | 2019-12-11 07:18 | PCM48HPAN ---
Post Anesthesia Note - EVALUATION WITHIN 48HRS OF ANESTHETIC Vital Signs in Normal Range: Yes Patient Participated in Evaluation: Yes Respiratory Function Stable: Yes Airway Patent: Yes Cardiovascular Function Stable: Yes Hydration Status Stable: Yes Pain Control Satisfactory: Yes Nausea and Vomiting Control Satisfactory: Yes Mental Status Recovered: Yes Vital Signs: Last Vital Signs Temp 36.6 C 12/11/19 05:00 Pulse 84 12/11/19 05:00 Resp 17 12/11/19 05:00 BP 133/79 12/11/19 05:00 Pulse Ox 97 12/11/19 05:00
--- NOTE | 2019-12-11 08:42 | OR ---
SURGEON: Laure Cha M.D. DATE OF PROCEDURE: 12/10/2019 This procedure was performed while covering as a locum for Dr. Castillo. PREOPERATIVE DIAGNOSES: A 39-4/7 weeks' intrauterine , active spontaneous labor, group B strep positive. POSTOPERATIVE DIAGNOSES: A 39-4/7 weeks' intrauterine , active spontaneous labor, group B strep positive. PROCEDURE: Pitocin augmentation of labor, term spontaneous vaginal delivery. PRIMARY SURGEON: Laure Cha MD MANAGER CONTACT: Juan Wood MS4 ANESTHESIA: Epidural. ESTIMATED BLOOD LOSS: Less than 200 mL. FINDINGS: Liveborn male, score of 7 and 9, weighing 3400 g. Placenta spontaneous, Schultze intact, with 3 vessels. Perineum intact. COMPLICATIONS: None known. DISPOSITION: Mother and baby are in LDR in good condition. BRIEF HISTORY: This is a 24-year-old female. She is G1, P0. She was recently moved from [facility]. She did see Gabri[facility] Dickson in the [facility] and presents in active spontaneous labor, category 1 heart tones, known to be group B strep positive. She presented with spontaneous rupture of membranes with augmentation of labor. Group B strep positive, received clindamycin for group B strep prophylaxis. She had category 1 heart tones with episodes of variable decelerations throughout labor. She progressed to complete. DESCRIPTION OF PROCEDURE: With the patient in dorsal lithotomy position, the patient pushed over a 50- minute time period to a 5+ station at which time the head was delivered spontaneously and atraumatically over the perineum with support. The turtling was noted, therefore, Bam maneuver was utilized. The anterior shoulder was slightly rotated with subsequent delivery of the anterior and posterior shoulders, and delivery of the 's body. The was bulb suctioned by nose and mouth and the cord was clamped x2 and cut and handed to the nurse in attendance at delivery. The infant was a liveborn male, score of 7 and 9, weighing 3400 g. Cord blood was collected for cord ABGs as well as routine cord blood sampling. Pitocin was initiated after delivery of the to assist with delivery. The placenta was delivered spontaneously, Schultze intact, with 3 vessels. Upon inspection of pelvis and perineum, there were no periurethral, vaginal sidewall, cervical, rectal, or perineal lacerations. EBL was less than 200 mL. Final sponge, needle, and instrument counts were correct. There were no complications. Mother and baby remained in the LDR in good condition. JOAN MIMS /[id number]
[2019-12-11] MEDS: Acetaminophen 500 MG Tab PO PRN ×2 (15:08→21:36)
[2019-12-12] MEDS ORDERED: Hydrocortisone 2.5% Crm 30 GM Tube TOP PRN (07:21)
--- NOTE | 2019-12-12 07:49 | PCM.PNPP ---
- General Info Date of Service: 12/12/19 Functional Status: Reports: Pain Controlled, Tolerating Diet, Ambulating, Urinating - Review of Systems General: Reports: No Symptoms HEENT: Reports: No Symptoms Pulmonary: Reports: No Symptoms Cardiovascular: Reports: No Symptoms Gastrointestinal: Reports: No Symptoms Genitourinary: Reports: No Symptoms Musculoskeletal: Reports: No Symptoms Skin: Reports: No Symptoms Neurological: Reports: No Symptoms Psychiatric: Reports: No Symptoms - Patient Data Vital Signs - Most Recent: Last Vital Signs Temp 37.1 C 12/12/19 04:00 Pulse 82 12/12/19 04:00 Resp 17 12/12/19 04:00 BP 123/80 12/12/19 04:00 Pulse Ox 96 12/12/19 04:00 Weight - Most Recent: 109.316 kg Micro Results - Last 24 Hours: Microbiology 12/10/19 06:56 Urine Culture - Preliminary Urine, Catheterized NO GROWTH AFTER 1 DAY Med Orders - Current: Current Medications Acetaminophen (Tylenol Extra Strength) 500 mg PO Q4H PRN PRN Reason: Pain Acetaminophen (Tylenol Extra Strength) 1,000 mg PO Q4H PRN PRN Reason: Pain Last Admin: 12/11/19 21:36 Dose: 1,000 mg Documented by: Benzocaine/Menthol (Dermoplast Pain Relief 20%-0.5% [place]) 78 gm TOP ASDIRECTED PRN PRN Reason: Perineal Comfort Measure Bisacodyl (Dulcolax) 10 mg RECTAL ONETIME PRN PRN Reason: Constipation Docusate Sodium (Colace) 100 mg PO BID PRN PRN Reason: Constipation Emollient Ointment (Lansinoh Hpa) 0 gm TOP ASDIRECTED PRN PRN Reason: Sore Nipples Hydrocortisone (Proctozone-Hc 2.5% Crm) 0 gm TOP ASDIRECTED PRN PRN Reason: Hemorrhoids Witch Della (Tucks) 1 pad TOP ASDIRECTED PRN PRN Reason: comfort care Discontinued Medications Bupivacaine HCl (Marcaine 0.5%) Confirm Administered Dose 30 ml .ROUTE .STK-MED ONE Stop: 12/10/19 08:38 Last Admin: 12/10/19 09:12 Dose: Not Given Documented by: Butorphanol Tartrate (Stadol) 1 mg IVPUSH Q1H PRN PRN Reason: Pain Last Admin: 12/09/19 18:21 Dose: 1 mg Documented by: Carboprost Tromethamine (Hemabate Ds) 250 mcg IM ASDIRECTED PRN PRN Reason: Post Hemorrhage Ephedrine Sulfate (Ephedrine Sulfate) Confirm Administered Dose 100 mg .ROUTE .STK-MED ONE Stop: 12/09/19 20:49 Fentanyl (Sublimaze) Confirm Administered Dose 100 mcg .ROUTE .STK-MED ONE Stop: 12/09/19 20:13 Last Admin: 12/10/19 09:12 Dose: Not Given Documented by: Fentanyl (Sublimaze) Confirm Administered Dose 100 mcg .ROUTE .STK-MED ONE Stop: 12/10/19 06:38 Last Admin: 12/10/19 09:11 Dose: Not Given Documented by: Fentanyl (Sublimaze) Confirm Administered Dose 100 mcg .ROUTE .STK-MED ONE Stop: 12/10/19 08:38 Last Admin: 12/10/19 09:09 Dose: Not Given Documented by: Lactated Ringer's (Ringers, Lactated) 1,000 mls @ 150 mls/hr IV ASDIRECTED [facility] Last Infusion: 12/10/19 06:47 Dose: Infused Documented by: Oxytocin/Sodium Chloride (Oxytocin 30 Unit/500 Ml-Ns) 30 unit in 500 mls @ 999 mls/hr IV TITRATE [facility] Last Infusion: 12/10/19 12:52 Dose: 500 mls/hr Documented by: Tranexamic Acid 1,000 mg/ (Sodium Chloride) 110 mls @ 660 mls/hr IV ONETIME PRN PRN Reason: Bleeding Clindamycin Phosphate 900 mg/ (Premix) 50 mls @ 100 mls/hr IV Q8H [facility] Last Admin: 12/10/19 12:10 Dose: 100 mls/hr Documented by: Ropivacaine (Naropin 0.2%) Confirm Administered Dose 100 mls @ as directed .ROUTE .STK-MED ONE Stop: 12/09/19 20:14 Last Admin: 12/10/19 09:11 Dose: Not Given Documented by: Sodium Chloride (Normal Saline) Confirm Administered Dose 20 mls @ as directed .ROUTE .STK-MED ONE Stop: 12/09/19 20:49 Oxytocin/Sodium Chloride (Oxytocin 30 Unit/500 Ml-Ns) 30 unit in 500 mls @ 2 mls/hr IV TITRATE ES; Protocol Last Infusion: 12/10/19 12:38 Dose: 0 munits/min, 0 mls/hr Documented by: Ropivacaine (Naropin 0.2%) Confirm Administered Dose 100 mls @ as directed .ROUTE .STK-MED ONE Stop: 12/10/19 06:44 Last Admin: 12/10/19 09:10 Dose: Not Given Documented by: Lidocaine HCl (Xylocaine 1%) 50 ml INJECT ONETIME PRN PRN Reason: Laceration repair Methylergonovine Maleate (Methergine) 0.2 mg IM ASDIRECTED PRN PRN Reason: Post Hemorrhage Misoprostol (Cytotec) 200 mcg PO ONETIME PRN PRN Reason: Post Hemorrhage Misoprostol (Cytotec) 25 mcg VAG Q4H PRN PRN Reason: Cervical Ripening Last Admin: 12/09/19 18:31 Dose: 25 mcg Documented by: Nalbuphine HCl (Nubain) 10 mg IVPUSH Q1H PRN PRN Reason: Pain (severe 7-10) Last Admin: 12/09/19 19:35 Dose: 10 mg Documented by: Nitrofurantoin Macrocrystals (Macrobid) 100 mg PO BID ES Last Admin: 12/10/19 09:13 Dose: Not Given Documented by: Ondansetron HCl (Zofran) 4 mg IVPUSH Q6H PRN PRN Reason: Nausea/Vomiting Last Admin: 12/10/19 04:09 Dose: 4 mg Documented by: Ropivacaine (Naropin 0.2%) Confirm Administered Dose 20 ml .ROUTE .STK-MED ONE Stop: 12/09/19 20:14 Last Admin: 12/10/19 09:11 Dose: Not Given Documented by: Ropivacaine (Naropin 0.2%) Confirm Administered Dose 20 ml .ROUTE .STK-MED ONE Stop: 12/10/19 06:38 Last Admin: 12/10/19 09:11 Dose: Not Given Documented by: Sodium Chloride (Saline Flush) 10 ml FLUSH ASDIRECTED PRN PRN Reason: Keep Vein Open Sodium Chloride (Saline Flush) 2.5 ml FLUSH ASDIRECTED PRN PRN Reason: Keep Vein Open Sodium Chloride (Normal Saline) 10 ml IV ASDIRECTED PRN PRN Reason: IV Use Sterile Water (Sterile Water For Irrigation) 1,000 ml IRR ASDIRECTED PRN PRN Reason: delivery Last Admin: 12/10/19 12:04 Dose: 1,000 ml Documented by: Terbutaline Sulfate (Brethine) 0.25 mg SUBCUT ASDIRECTED PRN PRN Reason: Tacysystole Last Admin: 12/09/19 23:37 Dose: 0.25 mg Documented by: - Infant Interaction Disposition, : Omega in Room with Family Infant Interaction: Holding Feeding: Bottle Fed Infant, Other (see below) (pumping) Support Person: Significant Other - Recovery Exam Fundal Tone: Firm Fundal Level: 1 Fingerbreadths Below Umbilicus Fundal Placement: Midline Lochia Amount: Scant Lochia Color: Rubra/Red Bladder Status: Voiding - Exam General: Alert, Oriented Neck: Supple Lungs: Normal Respiratory Effort GI/Abdominal Exam: No Distention Extremities: No Pedal Edema Skin: Warm, Dry, Intact Neurological: No New Focal Deficit Psy/Mental Status: Alert, Normal Affect, Normal Mood - Problem List & Annotations (1) Vaginal delivery SNOMED Code(s): 309361011 Code(s): O80 - ENCOUNTER FOR FULL-TERM UNCOMPLICATED DELIVERY Status: Acute Current Visit: Yes - Problem List Review Problem List Initiated/Reviewed/Updated: Yes - My Orders Last 24 Hours: My Active Orders 12/12/19 06:35 Ready for Discharge [RC] PER UNIT ROUTINE 12/12/19 07:21 Hydrocortisone [Proctozone-HC 2.5% Crm] See Dose Instructions TOP ASDIRECTED PRN - Assessment Assessment:: 24yo s/p . GBS positive sufficiently treated during labor. PPD#2 - Plan Plan:: Discharge home today; may room in if not cleared by molecular biology professor. Discharge precautions reviewed.
[2019-12-12] MEDS: Acetaminophen 500 MG Tab PO PRN (14:20)
== END 2019-12-12 20:08 | disposition home or self-care (01) | DRG 805 ==
LOC: MW.OBCHECK 10:02 → MW.OB 10:08 → MW.OBCHECK 11:49 → MW.OB 11:50 → OBSVTOIN 12-10 12:34 → MW.OB 12-10 14:45
PROVIDERS: ADMIT Obstetrics & Gynecology; ATTEND Obstetrics & Gynecology
PROC: 10E0XZZ Delivery of Products of Conception, External Approach (ICD-10-PCS; principal; 2019-12-09)
PROC: 3E0S3BZ Introduction of Anesthetic Agent into Epidural Space, Percutaneous Approach (ICD-10-PCS; 2019-12-09)
PROC: 00HU33Z Insertion of Infusion Device into Spinal Canal, Percutaneous Approach (ICD-10-PCS; 2019-12-09)
DX: O69.81X0 Labor and delivery complicated by cord around neck, without compression, not applicable or unspecified (principal); O75.3 Other infection during labor; Z37.0 Single live birth; Z3A.39 39 weeks gestation of pregnancy; O76 Abnormality in fetal heart rate and rhythm complicating labor and delivery; O99.824 Streptococcus B carrier state complicating childbirth; Z11.59 Encounter for screening for other viral diseases
CPT/HCPCS: 36415; 51702; 59025; 59409; 76819; 76819-26; 80053; 81001; 81003; 82570; 82803; 84156; 85014; 85018; 85027; 86592; 86850; 86900; 86901; 87086; A9270-GY; J0595; J2300; J2405; J2590; J3010; J3105; J3490; J7120; U0002